=== PATIENT | female | born 1955 | race Caucasian/White ===

== ENCOUNTER → 2018-04-11 | Outpatient (CLI) | payer OTHER ==
[~2018-04-11] MED LIST: REGADENOSON 0.4 MG/5 ML DISP.SYRIN. IV ONE
--- NOTE | 2018-04-11 09:54 | PCVCIMAG ---
APPROVED REPORT Study performed: 04/11/2018 08:00:34 EXAM: Comprehensive 2D, Doppler, and color-flow Echocardiogram Patient Location: Echo lab Status: routine BSA: 2.05 HR: 78 bpmBP: 140/85 mmHg Rhythm: NSR Other Information Study Quality: Good Risk Factors: Cardiac Risk Factors: HTN, Hyperlipidemia Indications Dyspnea Chest Pain 2D Dimensions IVSd: 8.09 (7-11mm)LVOT Diam: 17.61 (18-24mm) LVDd: 46.62 mm PWd: 6.57 (7-11mm)Ascending Ao: 33.97 (22-36mm) LVDs: 31.17 (25-40mm) Left Atrium: 32.04 (27-40mm) Aortic Root: 25.43 mm LV Single Plane 4CH: 57.68 % LV Single Plane 2CH: 72.74 % Biplane EF: 66.5 % Volumes Left Atrial Volume (Systole) Single Plane 4CH: 24.71 mLSingle Plane 2CH: 17.66 mL LA ESV Index: 11.00 mL/m2 Aortic Valve AoV Peak Srikanth.: 1.59 m/s AO Peak Gr.: 10.14 mmHgLVOT Max P.12 mmHg LVOT Max V: 1.13 m/s HÉCTOR Vmax: 1.73 cm2 Mitral Valve E/A Ratio: 0.8 MV Decel. Time: 285.46 ms MV E Max Srikanth.: 0.74 m/s MV A Srikanth.: 0.98 m/s IVRT: 114.19 ms TDI E/Lateral E': 6.73E/Medial E': 8.22 Medial E' Srikanth.: 0.09 m/s Lateral E' Srikanth.: 0.11 m/s Pulmonary Valve PV Peak Gr.: 2.93 mmHg Pulmonary Vein P Vein S: 0.62 m/sP Vein A: 0.33 m/s P Vein D: 0.33 m/sP Vein A Dur.: 100.3 msec P Vein S/D Ratio: 1.88 Tricuspid Valve TR Peak Srikanth.: 2.13 m/s TR Peak Gr.: 18.10 mmHg Left Ventricle The left ventricle is normal size. There is normal LV segmental wall motion. There is normal left ventricular wall thickness. Left ventricular systolic function is normal. The left ventricular ejection fraction is within the normal range. LVEF is 65%. The left ventricular diastolic function is normal. Right Ventricle The right ventricle is normal size. The right ventricular systolic function is normal. Atria The left atrium size is normal. The right atrium size is normal. Aortic Valve The aortic valve is normal in structure. No aortic regurgitation is present. There is no aortic valvular stenosis. Mitral Valve The mitral valve is normal in structure. There is no mitral valve regurgitation noted. No evidence of mitral valve stenosis. Tricuspid Valve The tricuspid valve is normal in structure. Trace to mild tricuspid regurgitation. Pulmonary artery pressure is 26mmHg. Pulmonic Valve The pulmonary valve is normal in structure. There is no pulmonic valvular regurgitation. Great Vessels The aortic root is normal in size. IVC is normal in size and collapses >50% with inspiration. Pericardium There is no pericardial effusion. <Conclusion> The left ventricle is normal size. LVEF is 65%. The aortic valve is normal in structure. The mitral valve is normal in structure. The tricuspid valve is normal in structure. Trace to mild tricuspid regurgitation. Pulmonary artery pressure is 26mmHg. The pulmonary valve is normal in structure. There is no pericardial effusion.
--- NOTE | 2018-04-11 11:55 | PCVCIMAG ---
APPROVED REPORT Imaging Protocol: Rest Tc-99m/Stress Tc-99m 1 day Study performed: 04/11/2018 08:37:00 Indication: Chest pain, Dyspnea Patient Location: Out-Patient Stress Nurse: Dayan Leon RN NM Tech:Arturo Copeland NMMARKB Ht: 5 ft 6 in Wt: 213 lbs BSA: 2.05 m2 HR: 80 bpm BP: 158/76 mmHg BMI: 34.3 Rhythm: Sinus Rhythm, Nonspecific ST T Wave Abnormality Medical History Medical History: Age, Hyperlipidemia, Former Smoker Medications: Kdur, Chlorthalidone Allergies: Quinine Pretest Chest Pain Characteristics: No chest pain Exercise History: Physically active Resting Data Rest SPECT myocardial perfusion imaging was performed in supine position 45 minutes following the intravenous injection of 12 mCi of Tc-99m Sestamibi. Time of rest injection: 844 Date: 04/11/2018 Administration Route: IV Administration Site: Right Arm Pharmacologic Stress Pharmacologic stress test was performed by injecting Regadenoson 0.4 mg IV push over 10-15 seconds immediately followed by the intravenous injection of 34.2 mCi of Tc-99m Sestamibi. Time of stress injection: 949 Date: 04/11/2018 Administration Route: IV Administration Site: Right Arm Gated Stress SPECT was performed 45 minutes after stress injection. The images were gated to evaluate regional wall motion and calculate left ventricular ejection fraction. Stress Test Details Stress Test: Pharmacologic stress testing performed using 0.4 mg of regadenoson per 5 mL given IV over 10 seconds. Reason for pharmacologic stress test: Joint issues. HRMax Heart Rate (APMHR): 158 bpm Resting HR: 80 bpmTarget HR (85% APMHR): 134 bpm Max HR Achieved: 96 bpm % of APMHR: 60 Recovery HR: 82 bpm BP Resting BP: 158/76 mmHg Max BP: 100/59 mmHg Recovery BP: 102/59 mmHg ECG Resting ECG: Sinus Rhythm, nonspecific ST-T abnormalities Stress ECG: Sinus Rhythm, nonspecific ST-T abnormalities Arrhythmia: None Recovery ECG: Sinus Rhythm, nonspecific ST-T abnormalities Clinical Reason for Termination: Completed protocol Stress Symptoms: Lightheaded Symptoms resolved with caffeine. Stress ECG Conclusion 1. Adequate response to intravenous Lexiscan 2. Inadequate heart rate for ECG diagnosis Study Data Post stress, the left ventricular ejection was 82%.. SSS: 0 SRS: 10 SDS: 0 TID = 1.00. Perfusion There is a large area of moderately reduced uptake in the entire segment of the inferoseptal wall which is seen on the stress images as well as the resting images. This area thickens and moves normally and is most consistent with attenuation artifact. Nuclear Conclusion ECG Findings: non-diagnostic Clinical Findings: negative for ischemia Nuclear Findings: negative for ischemia Exercise Capacity: not assessed Left Ventricular Function: normal 1. Low risk study Interpreted by: Mei Phillips MD Electronically Approved: 04/11/2018 11:53:32 <Conclusion> 1. Adequate response to intravenous Lexiscan 2. Inadequate heart rate for ECG diagnosis
== END | disposition home or self-care (01) ==
LOC: PCVCIMAG 08:35
PROVIDERS: ATTEND Internal Medicine
DX: R07.9 Chest pain, unspecified (principal); R06.09 Other forms of dyspnea; I10 Essential (primary) hypertension; E78.5 Hyperlipidemia, unspecified; Z87.891 Personal history of nicotine dependence
CPT/HCPCS: 78452; 93017; 93306; A9500; J2785